=== PATIENT | female | born 1990 | race Caucasian/White ===

== ENCOUNTER → 2021-04-18 08:56 | Outpatient (BNVA) | payer SELFPAY | PROVIDERS: Family Provider Electrodiagnostic Medicine; PCP Electrodiagnostic Medicine; Visit Provider Nurse Practitioner Women's Health | DX: Z12.4 Encounter for screening for malignant neoplasm of cervix (principal); R68.82 Decreased libido | CPT/HCPCS: 88175 ==

== ENCOUNTER → 2021-07-24 10:45 | Outpatient (BNVA) | payer SELFPAY | PROVIDERS: Family Provider Electrodiagnostic Medicine; PCP Electrodiagnostic Medicine; Visit Provider Nurse Practitioner Women's Health | DX: O26.90 Pregnancy related conditions, unspecified, unspecified trimester (principal) | CPT/HCPCS: 81025 ==

== ENCOUNTER → 2021-08-26 10:08 | Outpatient (BNVA) | payer BC, SELFPAY | PROVIDERS: Family Provider Electrodiagnostic Medicine; PCP Electrodiagnostic Medicine; Visit Provider Obstetrics & Gynecology | DX: O21.9 Vomiting of pregnancy, unspecified (principal) | CPT/HCPCS: 80307; 81000; 85027; 86592; 86762; 86803; 86850; 86900; 87086; 87340; 87806 ==

== ENCOUNTER → 2021-09-08 11:05 | Outpatient (BNVA) | payer BC, MEDICAID, SELFPAY | PROVIDERS: Family Provider Electrodiagnostic Medicine; PCP Electrodiagnostic Medicine; Visit Provider Obstetrics & Gynecology | DX: Z34.80 Encounter for supervision of other normal pregnancy, unspecified trimester (principal) | CPT/HCPCS: 81000; 87491; 87591 ==

== ENCOUNTER → 2021-10-09 08:16 | Outpatient (BNVA) | payer BC, MEDICAID, SELFPAY | PROVIDERS: Family Provider Electrodiagnostic Medicine; PCP Electrodiagnostic Medicine; Visit Provider Nurse Practitioner Women's Health | DX: Z34.80 Encounter for supervision of other normal pregnancy, unspecified trimester (principal) | CPT/HCPCS: 81000; 82105; 87086 ==

== ENCOUNTER → 2021-11-19 13:21 | Outpatient (BNVA) | payer BC, MEDICAID, SELFPAY | PROVIDERS: Family Provider Electrodiagnostic Medicine; PCP Electrodiagnostic Medicine; Visit Provider Obstetrics & Gynecology | DX: Z34.90 Encounter for supervision of normal pregnancy, unspecified, unspecified trimester (principal) | CPT/HCPCS: 81000 ==

== ENCOUNTER → 2021-12-02 09:18 | Outpatient (BNVA) | payer BC, MEDICAID, SELFPAY | PROVIDERS: Family Provider Electrodiagnostic Medicine; PCP Electrodiagnostic Medicine; Visit Provider Obstetrics & Gynecology | DX: Z34.80 Encounter for supervision of other normal pregnancy, unspecified trimester (principal) | CPT/HCPCS: 81000 ==

== ENCOUNTER → 2021-12-31 09:40 | Outpatient (BNVA) | payer BC, MEDICAID, SELFPAY | PROVIDERS: Family Provider Electrodiagnostic Medicine; PCP Electrodiagnostic Medicine; Visit Provider Obstetrics & Gynecology | DX: O21.9 Vomiting of pregnancy, unspecified (principal); Z3A.00 Weeks of gestation of pregnancy not specified | CPT/HCPCS: 81000; 82950; 85027; 86850 ==

== ENCOUNTER → 2022-01-05 08:25 | Outpatient (BNVA) | payer BC, MEDICAID, SELFPAY | PROVIDERS: Family Provider Electrodiagnostic Medicine; PCP Electrodiagnostic Medicine; Visit Provider Obstetrics & Gynecology | DX: Z34.90 Encounter for supervision of normal pregnancy, unspecified, unspecified trimester (principal) | CPT/HCPCS: 82951; 82952 ==

== ENCOUNTER → 2022-01-15 09:01 | Outpatient (BNVA) | payer BC, MEDICAID, SELFPAY | PROVIDERS: Family Provider Electrodiagnostic Medicine; PCP Electrodiagnostic Medicine; Visit Provider Obstetrics & Gynecology | DX: Z34.90 Encounter for supervision of normal pregnancy, unspecified, unspecified trimester (principal) | CPT/HCPCS: 81000 ==

== ENCOUNTER → 2022-01-26 08:30 | Outpatient (BNVA) | payer BC, MEDICAID, SELFPAY | PROVIDERS: Family Provider Electrodiagnostic Medicine; PCP Electrodiagnostic Medicine; Visit Provider Obstetrics & Gynecology | DX: Z34.90 Encounter for supervision of normal pregnancy, unspecified, unspecified trimester (principal) | CPT/HCPCS: 81000; 87086 ==

== ENCOUNTER → 2022-01-29 09:30 | Outpatient (BNVA) | payer BC, MEDICAID, SELFPAY | PROVIDERS: Family Provider Electrodiagnostic Medicine; PCP Electrodiagnostic Medicine; Visit Provider Obstetrics & Gynecology | DX: Z34.90 Encounter for supervision of normal pregnancy, unspecified, unspecified trimester (principal) | CPT/HCPCS: 87086 ==

== ENCOUNTER → 2022-02-09 09:14 | Outpatient (BNVA) | payer BC, MEDICAID, SELFPAY | PROVIDERS: Family Provider Electrodiagnostic Medicine; PCP Electrodiagnostic Medicine; Visit Provider Obstetrics & Gynecology | DX: Z34.90 Encounter for supervision of normal pregnancy, unspecified, unspecified trimester (principal) | CPT/HCPCS: 81000; 85025 ==

== ENCOUNTER → 2022-02-23 09:01 | Outpatient (BNVA) | payer BC, MEDICAID, SELFPAY | PROVIDERS: Family Provider Electrodiagnostic Medicine; PCP Electrodiagnostic Medicine; Visit Provider Obstetrics & Gynecology | DX: Z34.90 Encounter for supervision of normal pregnancy, unspecified, unspecified trimester (principal) | CPT/HCPCS: 81000; 87081 ==

== ENCOUNTER → 2022-03-04 10:28 | Outpatient (BNVA) | payer BC, MEDICAID, SELFPAY | PROVIDERS: Family Provider Electrodiagnostic Medicine; PCP Electrodiagnostic Medicine; Visit Provider Obstetrics & Gynecology | DX: Z34.90 Encounter for supervision of normal pregnancy, unspecified, unspecified trimester (principal) | CPT/HCPCS: 81000 ==

== ENCOUNTER → 2022-03-09 09:45 | Outpatient (BNVA) | payer BC, MEDICAID, SELFPAY | PROVIDERS: PCP Electrodiagnostic Medicine; Visit Provider Obstetrics & Gynecology | DX: Z34.90 Encounter for supervision of normal pregnancy, unspecified, unspecified trimester (principal) | CPT/HCPCS: 81000 ==

== ENCOUNTER → 2022-03-16 08:55 | Outpatient (BNVA) | payer BC, MEDICAID, SELFPAY | PROVIDERS: PCP Electrodiagnostic Medicine; Visit Provider Obstetrics & Gynecology | DX: Z34.90 Encounter for supervision of normal pregnancy, unspecified, unspecified trimester (principal) | CPT/HCPCS: 81000 ==

== ENCOUNTER 2022-03-18 13:48 | Inpatient (IN) | payer BC, MEDICAID, SELFPAY ==
[2022-03-18] VITALS (88 sets, daily range): BP systolic 89–169; BP diastolic 52–115; PULSE 58–137; RESP 16–18; TEMP 36.3–36.6; O2SAT 99; BMI 31.8
[2022-03-18 10:28] LABS: Basophils % 0.2 %; Eosinophils % 0.1 %; Hemoglobin 14.1 g/dL (11.5-15.3); Lymphocytes # 1.2 10^3/uL (0.8-4.8); Lymphocytes % 7.9 %; Mean Corpuscular HGB Conc 34.4 g/dL (30.0-36.0); Mean Corpuscular Hemoglobin 30.2 pg (28.0-34.0); Mean Corpuscular Volume 87.8 fl (81-99); Mean Platelet Volume 10.9 fL (7.4-10.4); Monocytes # 0.7 10^3/uL (0.2-0.9); Monocytes % 4.9 %; Neutrophils # 12.97 10^3/uL (1.8-7.7); Neutrophils % 86.4 %; Nucleated Red Blood Cells % 0 %; Platelet Count 128 10^3/cmm (130-400); Red Blood Count 4.67 10^6/uL (4.1-5.3); Red Cell Distribution Width 12.4 % (12.1-15.1)
[2022-03-18 10:31] LABS: Add Urine Microscopic? YES; Bilirubin Urine Neg (Negative); Blood Urine 2+ (Negative); Glucose Urine UA Norm (Normal); Ketones Urine Negative (Negative); Leukocyte Esterase Urine Negative (Negative); Nitrate Urine Negative (Negative); Protein Urine Neg (Negative); Specific Gravity, Urine 1.005 (1.005-1.030); Urine Appearance Clear (CLEAR); Urine Color Straw (Yellow); Urobilinogen Urine Norm (Negative); pH Urine 7 (5-7)
[2022-03-18 10:32] LABS: Add Urine Culture? No; Bacteria Urine TRACE /hpf; Mucus Urine TRACE /hpf; RBC Urine RARE /hpf (0-2); Squamous Epithelial Cell Urine RARE /hpf (0-5); WBC Urine 0-4 /hpf (0-5)
[2022-03-18 10:44] LABS: Alanine Aminotransferase 12 U/L (0-33); Albumin Level 3.4 g/dL (3.5-5.2); Alkaline Phosphatase 212 U/L (35-105); Anion Gap 14.9 (5-19); Aspartate Amino Transferase 19 U/L (0-32); Blood Urea Nitrogen 7 mg/dL (6-20); Calcium 8.9 mg/dL (8.5-10.5); Carbon Dioxide 20 mmol/L (22-29); Chloride 102 mmol/L (98-107); Globulin 2.9 g/dL (1.3-4.6); Glomerular Filtration Rate 144.9 mL/min (90-130); Glucose 76 mg/dL (65-115); Osmolality Calculated 273 mOsm/kg (285-295); Potassium 3.9 mmol/L (3.5-5.1); Sodium 133 mmol/L (136-145); Total Bilirubin 0.5 mg/dL (0.15-1.2); Total Protein 6.3 g/dL (6.6-8.7); Uric Acid 3.4 mg/dL (2.4-5.7)
[2022-03-18 10:46] LABS: Urine Creatinine 37 mg/dL (28-217); Urine Protein Random 4 mg/dL
[2022-03-18 10:48] LABS: UPRO/UCREAT Ratio 0.11 mg/mg CR
[2022-03-18] MEDS: dextrose 5%-lactated ringers 1,000 ML 999 ML IV ×3 (11:48→23:00)
[2022-03-18] MEDS: ondansetron 2 mg/ML SDV 2 mL 4 MG IVP (11:49)
[2022-03-18] MEDS: lactated ringers 1,000 ML 999 ML IV (14:12)
--- NOTE | 2022-03-18 15:01 | P.ANESASSM_ITS ---
Pre-Anesthetic Assessment Height/Weight: Height 1.6 m Weight 81.647 kg Temp Pulse BP Pulse Ox 97.9 F 82 109/66 99 03/18/22 13:25 03/18/22 14:57 03/18/22 14:57 03/18/22 14:50 Preop Diagnosis: IUP epidural Familial anesthetic complications: none Was Beta Azucena taken within 24 hours: N/A Was Clonidine taken within 24 hours: N/A Last intake: toast this morning Social No alcohol and No tobacco Exam alert, oriented x 3, clear to auscultation bilaterally and regular rate & rhythm Airway Mallampati: Class I Dentition: chipped Pulmonary Asthma Anesthetic Plan ASA status: 2 Anesthesia: Regional (specify below) Risk of > 500 ml blood loss (7ml/kg in children): Yes, adequate IV access and fluids planned Medications/Allergies Home Medications Medication Instructions Recorded Confirmed Last Taken Type albuterol sulfate 90 mcg/actuation 2 puff inhalation Q6H PRN 08/26/21 03/16/22 Unknown Rx aerosol inhaler (Ventolin HFA) shortness of breath or wheezing #6.7 grams prenat.vits,ramses,[id number] 1 tab PO DAILY 08/26/21 03/16/22 Unknown History acetaminophen 325 mg capsule 325 mg PO QID PRN 12/02/21 03/16/22 Unknown History (Tylenol) Allergies Allergy/AdvReac Type Severity Reaction Status Date / Time No Known Allergies Allergy Verified 03/16/22 08:52 Current Medications Generic Name Dose Route Start Last Admin Trade Name Freq PRN Reason Stop Dose Admin Ropivacaine 200 mg in 100 mls @ 13 mls/hr 03/18/22 14:00 03/18/22 14:48 Naropin Premix EPIDURAL 13 mls/hr .[id number] VIJAY Administration Lactated Ringer's 1,000 mls @ 999 mls/hr 03/18/22 13:47 03/18/22 14:12 Lactated Ringers IV 999 mls/hr .Q1H1M PRN Administration Per L&D Rescitation Protocol [facility] Anesthesia Medical History Asthma Diagnosed in high school and it is exacerbated by heat and exercise. Last time she used an inhaler was probably in 2017 No pertinent past medical history Denies diabetes, hypertension, seizures, DVT/PE PCP: Dr. 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 Family History Denies family history of Colon cancer Ovarian cancer Diabetes Clotting disorder Heart disease Hypercholesteremia Breast cancer Bleeding disorder Hypertension Uterine cancer Thyroid disease Stroke Social History Smoking and tobacco status: never smoked Female Reproductive History : 1 Data Anesthesia : 03/18/22 10:00 03/18/22 10:00 Short CBC 03/18/22 Range/Units 10:00 WBC 15.0 H (4.0-10.0) 10^3/uL Hgb 14.1 (11.5-15.3) g/dL Hct 41.0 (37.0-47.0) % MCV 87.8 (81-99) fl Plt Count 128 L (130-400) 10^3/cmm Neut % (Auto) 86.4 % Neut # (Auto) 12.97 H (1.8-7.7) 10^3/uL BMP 03/18/22 10:00 Sodium 133 L Potassium 3.9 Chloride 102 Carbon Dioxide 20 L BUN 7 Creatinine 0.5 Glucose 76 Calcium 8.9 Liver Function 03/18/22 Range/Units 10:00 Total Bilirubin 0.5 (0.15-1.2) mg/dL AST 19 (0-32) U/L ALT 12 (0-33) U/L Alkaline Phosphatase 212 H (35-105) U/L Albumin 3.4 L (3.5-5.2) g/dL Urine 03/18/22 Range/Units 10:01 Urine Color Straw (Yellow) Urine Appearance Clear (CLEAR) Urine pH 7 (5-7) Ur Specific [place] 1.005 (1.005-1.030) Urine Protein Neg (Negative) Urine Glucose (UA) Norm (Normal) Urine Ketones Negative (Negative) Urine Nitrate Negative (Negative) Urine Bilirubin Neg (Negative) Ur Leukocyte Esterase Negative (Negative) Urine RBC Rare (0-2) /hpf Urine WBC 0-4 H (0-5) /hpf Cardiac Studies: No Data to Display
--- NOTE | 2022-03-18 15:02 | ANES.PROC ---
Anesthesia Procedures Procedure/Date: 03/18/22 Epidural: Time Out Performed: Yes Consents Signed: Procedure Consent Consent: requested by attending/covering physician, from patient, risks and benefits reviewed and patient agrees to proceed Lumbar Level: L3-L4 Epidural position: sitting Epidural procedure: sterile prep of area, 1% lidocaine to numb the area, 18 g needle, negative for paresthesia passed, neg for paresthesia, test dose given, 1.5% xylocaine 1:200k epi (2% lidocaine), 0.2% Ropivacaine bolus ml (5), placed PCEA, no systemic response, sterile dressing applied, L.U.D. no apparent complications and 0.2% Ropiavacaine @ mls/hr (3) Additional Comments: ROBIN at 6 cm, threaded to 12 cm
[2022-03-18] MEDS: dextrose 5%-lactated ringers 1,000 ML 125 ML IV (16:02)
--- NOTE | 2022-03-18 16:07 | PM.OPHPUD ---
Labor & Delivery H&P Update Date of Procedure: March 20, 2022 Date H&P Performed: 03/16/22 H&P update information: I have reviewed H&P completed within last 30 days, I have examined patient prior to procedure and Changes to prior documentation as noted here Changes to previous documentation: The patient's cervix has progressed to 3 cm dilation and she is having regular painful contractions. She will be admitted for active labor. Admission Diagnosis: @ 39 weeks 5 days Preop diagnosis: IUP
[2022-03-18] MEDS: alum-mag-hydroxide-sime 30 mL UDC PO (18:19)
[2022-03-18] MEDS: oxytocin 30 UNIT/500 ML BAG IV (18:37)
[2022-03-19] VITALS (89 sets, daily range): BP systolic 85–143; BP diastolic 46–84; PULSE 56–133; RESP 12–18; TEMP 36.2–37.9
[2022-03-19] MEDS: ondansetron 2 mg/ML SDV 2 mL 4 MG IVP (00:44)
[2022-03-19] MEDS: alum-mag-hydroxide-sime 30 mL UDC PO ×2 (02:11→16:45)
[2022-03-19] MEDS: dextrose 5%-lactated ringers 1,000 ML 125 ML IV ×2 (03:22→05:35)
[2022-03-19] MEDS: acetaminophen 325 mg Tablet 650 MG PO ×3 (03:56→18:29)
[2022-03-19] MEDS: ampicillin 2,000 MG in sodium chloride 0.9% (plus) 50 ML 100 MG IV (06:16)
--- NOTE | 2022-03-19 06:22 | PM.DELIVERY ---
Delivery Note: Date of delivery: March 19, 2022 Pre-delivery diagnoses: Term Active labor Post-delivery diagnoses: Same Procedure: Delivering Physician: Reynaldo Estimated blood loss (mL): 350 Findings: viable male with apgars of 8&9 Post Delivery Diagnoses: Supervision of normal : Qualifiers: Qualified Code(s): Z34.03 - Encounter for supervision of normal first , third trimester Pre-Delivery Course: Pt was actively laboring with intact membranes that spontaneously ruptured. Epidural in place and working well. Progress was slow with low grade fever and maternal tachycardia. Delivery: Male delivered from the oa position over a 2nd degree midline and left labial laceration with epidural anesthesia. Baby placed on the maternal abdomen and the cord allowed to pulse. Terminal meconium noted at delivery. Tranexamic acid 1000mg given after delivery due to increased hemorrhage risk d/t long labor and low grade fever with maternal tachycardia c/w chorioamnionitis. Placenta delivered spontaneously with 3 vc noted. EBL 350ml. Laceration repair with 3-0 vicryl in a layered fashion x 2. Cervix noted to be prolapsing at delivery and was easily reduced. Cervix and rectum intact. Post-Delivery Status: mom and baby stable, baby to nursery for further evaluation. History History History 1 Term Miscarriages/Ectopic Living Children A&P Assessment and plan (1) Supervision of normal : Qualifiers: Qualified Code(s): Z34.03 - Encounter for supervision of normal first , third trimester (2) Asthma: (3) Chorioamnionitis, delivered, current hospitalization: Plan Uncomplicated 2nd degree midline perineal laceration, repaired left labial laceration, repaired will continue ampicillin and gentamycin for 24 hrs routine pp care Coding Level of Care Code Established Pt Acute Labor And Delivery Registered Nurse for Chg Fwd Patient Type Established History Problem Focused Exam Problem Focused Medical Decision Making Straight Forward Diagnoses Supervision of normal Z34.03 Asthma J45.909 Chorioamnionitis, delivered, current hospitalization O41.1290 Time Spent (min) 45
[2022-03-19] MEDS: hyDROXYzine 25 mg Capsule 50 MG PO (07:34)
[2022-03-19] MEDS: ampicillin 1,000 MG in sodium chloride 0.9% (plus) 50 ML 100 MG IV ×3 (09:57→18:30)
[2022-03-19] MEDS: lactated ringers 1,000 ML 125 ML IV ×2 (15:12→21:32)
--- NOTE | 2022-03-19 16:45 | P.PN_ITS ---
Subjective Subjective: Ms. Echavarria is a 31 year old with an LMP of 06/14/2021 and an BRIDGET of 03/21/2022 by LMP consistent with 9 week ultrasound, placing her at 39-5/7 weeks gestation. Admitted to labor and delivery in active labor. Vitals/I&O/Wt Last Vital Signs Temp 97.8 F 03/21/22 09:47 Pulse 94 03/21/22 09:47 Resp 16 03/21/22 09:47 BP 114/75 03/21/22 09:47 Pulse Ox 97 03/21/22 09:47 O2 Del Method 03/19/22 10:06 03/20/22 03/21/22 03/21/22 22:59 06:59 14:59 Intake Total 50 / 100 Balance 50 / 100 Physical Exam Narrative: GA: Alert and oriented ?3. Lungs: Clear to auscultation bilaterally. Heart: Regular rhythm and rate. Abdomen: Gravid, full the height equals dates, nontender. GROUND INSTRUCTOR ADVANCED: SVE; dilation: 9 cm, effacement: 100%, station: 0, presentation: vx, membranes: AROM. Extremities: no edema, no cyanosis, no calves pain. heart tracing: Basal rate: 140's bpm, Variability: moderate, Accelerations: present, Decelerations: absent, Contraction: q3min. Urinary Catheter Management: Garcia: Cath Placed During This Visit: yes, but has since been removed by the nurse Reason for Continuing Indwelling Catheter: Required Immobilization for Trauma or Surgery or Anesthesia Urinary Catheter Date of Insertion: 03/18/22 Urinary Catheter Time of Insertion: 15:30 Date Urinary Catheter Removed: 03/19/22 Time Urinary Catheter Discontinued: 19:17 Data : 03/21/22 05:10 03/18/22 10:00 A&P Assessment and plan (1) Term : Ms. Echavarria is a 31 year old with an LMP of 06/14/2021 and an BRIDGET of 03/21/2022 by LMP consistent with 9 week ultrasound, placing her at 39-5/7 weeks gestation. heart tracing category 2 due to tachycardia with maternal fever. Antibiotic started. scalp stimulation good. Attestations Medical Necessity Statement*: In my professional opinion per admitting diagnosis Coding Level of Care Code Acute Auto Body Builder Apprentice for Chg Fwd Diagnoses Term Z34.90
[2022-03-19] MEDS: pantoprazole 40 mg SDV IVP (19:34)
[2022-03-19] MEDS: gentamicin inj 120 MG in sodium chloride 0.9% (100 ml) 100 ML 103 MG IV (21:32)
[2022-03-20] VITALS (9 sets, daily range): BP systolic 98–120; BP diastolic 56–74; PULSE 68–93; RESP 16; TEMP 36.4–36.9
[2022-03-20] MEDS: ampicillin 1,000 MG in sodium chloride 0.9% (plus) 50 ML 100 MG IV ×5 (01:36→20:36)
[2022-03-20] MEDS: ibuprofen 800 mg tablet PO ×3 (09:59→20:38)
[2022-03-20] MEDS: prenatal vitamin Capsule 1 CAP PO (09:59)
[2022-03-20 10:59] LABS: Hematocrit 27.8 % (37.0-47.0); Hemoglobin 9.6 g/dL (11.5-15.3); Mean Corpuscular HGB Conc 34.5 g/dL (30.0-36.0); Mean Corpuscular Hemoglobin 31.2 pg (28.0-34.0); Mean Corpuscular Volume 90.3 fl (81-99); Mean Platelet Volume 11.4 fL (7.4-10.4); Platelet Count 106 10^3/cmm (130-400); Red Blood Count 3.08 10^6/uL (4.1-5.3); Red Cell Distribution Width 12.8 % (12.1-15.1); White Blood Count 21.2 10^3/uL (4.0-10.0)
--- NOTE | 2022-03-20 11:14 | P.PN_ITS ---
CUE WORKER Subjective Subjective: Interval history: PP day #1 doing well. Feeling some discomfort with movement but denies pain. Bleeding decreased since delivery. Labor: Station: +3 Monitor Mode: Palpation Contraction Pattern: Regular Status: Category I Post /CS: Patient comments OB post-: no complaints, pain well controlled, tolerating diet and flatus present [place] baby status: doing well and other (in room with parents) Vitals/I&O/Wt Last Vital Signs Temp 97.2 F L 03/19/22 21:00 Pulse 68 03/20/22 04:00 Resp 16 03/20/22 04:00 BP 102/65 03/20/22 04:00 Pulse Ox 99 03/18/22 14:50 O2 Del Method 03/19/22 10:06 03/19/22 03/20/22 03/20/22 22:59 06:59 14:59 Intake Total 2259.017 / 2466.250 100 / 2566.250 Output Total 600 / 600 Balance 1659.017 / 1866.250 100 / 1966.250 Physical Exam Const: COMMON NORMALS: no acute distress, patient oriented x3, alert and well nourished HENMT: COMMON NORMALS: normocephalic, atraumatic, hearing grossly normal bilaterally and moist oral mucous membranes HEAD & SCALP: normocephalic and atraumatic Eye: COMMON NORMALS: conjunctivae normal and no scleral icterus CONJUNCTIVA: Yes conjunctivae normal Neck/C-Spine: COMMON NORMALS: no JVD Resp: COMMON NORMALS: normal respiratory effort, No retractions and No use of accessory muscles Cardio: COMMON NORMALS: no JVD, regular rate and Peripheral pulses 2+ throughout RATE: regular rate PERIPHERAL PULSES: Peripheral pulses 2+ throughout GI: COMMON NORMALS: Normal to inspection, nondistended, normoactive bowel sounds present, Soft to palpation and non-tender PALPATION: Yes Soft to palpation : COMMON NORMALS: Yes normal external appearance (laceration repair healing well without echymosis, mild edema) Extremity: COMMON NORMALS: normal to inspection, full ROM and capillary refill normal NARRATIVE EXTREMITY EXAM: mild nonpitting edema bilateral le Neuro: COMMON NORMALS: patient oriented x3, moves all extremities, no focal motor deficits, no sensory deficits noted and gait normal SENSORIUM/ORIENTATION: Yes alert Psych: COMMON NORMALS: mental status grossly normal, Normal thought process present, cooperative, normal affect and speech normal SPEECH: Yes normal speech THOUGHT PROCESS: Normal thought process present Skin: COMMON NORMALS: turgor normal GENERAL SKIN EXAM: turgor normal Urinary Catheter Management: Garcia: Cath Placed During This Visit: yes, but has since been removed by the nurse Reason for Continuing Indwelling Catheter: Required Immobilization for Trauma or Surgery or Anesthesia Urinary Catheter Date of Insertion: 03/18/22 Urinary Catheter Time of Insertion: 15:30 Date Urinary Catheter Removed: 03/19/22 Time Urinary Catheter Discontinued: 19:17 Data : 03/20/22 10:10 03/18/22 10:00 A&P Assessment and plan (1) Supervision of normal : delivered vaginally with repair of 2nd degree laceration and left labial laceration plan dc in 2 days to home received antibiotics post delivery for chorioamnionitis Status: Acute Qualifiers: Qualified Code(s): Z34.03 - Encounter for supervision of normal first , third trimester (2) Asthma: Status: Acute (3) Chorioamnionitis, delivered, current hospitalization: ampicillin and gentamycin continued after delivery will repeat cbc tomorrow Status: Acute Attestations Medical Necessity Statement*: 03/19/22 with laceration repair Coding Level of Care Code Acute National Sales Associate for Chg Fwd Diagnoses Supervision of normal Z34.03 Asthma J45.909 Chorioamnionitis, delivered, current hospitalization O41.1290 Time Spent (min) 30
[2022-03-20] MEDS: docusate sodium 100 mg Capsule PO (16:51)
[2022-03-21 05:00] VITALS: BP 101/72; PULSE 80; RESP 16; TEMP 36.9
[2022-03-21 05:23] LABS: Basophils % 0.3 %; Eosinophils # 0.1 10^3/uL (0.0-0.8); Eosinophils % 0.7 %; Hematocrit 24.9 % (37.0-47.0); Hemoglobin 8.5 g/dL (11.5-15.3); Lymphocytes # 1.6 10^3/uL (0.8-4.8); Lymphocytes % 11.8 %; Mean Corpuscular HGB Conc 34.1 g/dL (30.0-36.0); Mean Corpuscular Volume 90.9 fl (81-99); Mean Platelet Volume 10.8 fL (7.4-10.4); Monocytes # 0.7 10^3/uL (0.2-0.9); Monocytes % 5.2 %; Neutrophils # 11.19 10^3/uL (1.8-7.7); Neutrophils % 81.3 %; Nucleated Red Blood Cells % 0 %; Platelet Count 110 10^3/cmm (130-400); Red Blood Count 2.74 10^6/uL (4.1-5.3); Red Cell Distribution Width 13.1 % (12.1-15.1); White Blood Count 13.8 10^3/uL (4.0-10.0)
--- NOTE | 2022-03-21 08:25 | ANE.PACU2 ---
Inpatient post-anesthesia follow up: Airway intact: Yes Vital signs: Temperature 98.5 F Pulse Rate 80 Respiratory Rate 16 Blood Pressure 101/72 Pulse Oximetry 99 Oxygen Delivery Me thod Room Air Oxygen Flow Rate Fraction of Inspir ed Oxygen Hydration adequate: Yes Nausea and vomiting: No Pain level: 2 Mental status: Baseline
[2022-03-21] MEDS: docusate sodium 100 mg Capsule PO ×2 (09:39→18:39)
[2022-03-21] MEDS: prenatal vitamin Capsule 1 CAP PO (09:39)
[2022-03-21] MEDS: ibuprofen 800 mg tablet PO ×3 (09:39→21:20)
[2022-03-21 09:47] VITALS: BP 114/75; PULSE 94; RESP 16; TEMP 36.6; O2SAT 97
--- NOTE | 2022-03-21 12:15 | PM.OBGYDC ---
Discharge Providers BOARDINGHOUSE KEEPER Date of Admission: 03/18/22 13:48 Date of Discharge: 03/21/22 Attending Provider at Admission: Daphne Robledo MD Attending Provider at Discharge: Ganga Marie MD Primary Care Provider: Jonathan King DO Diagnoses at Discharge Discharge Diagnosis (1) Supervision of normal : Details from hospital stay: delivered via current hospital stay Status: Acute Qualifiers: Qualified Code(s): Z34.03 - Encounter for supervision of normal first , third trimester (2) Asthma: Details from hospital stay: stable Status: Acute Permanent problem details: Diagnosed in high school and it is exacerbated by heat and exercise. Last time she used an inhaler was probably in 2017 (3) Chorioamnionitis, delivered, current hospitalization: Details from hospital stay: resolved Status: Acute Reason for Visit Reason for Visit: Active Labor Brief History: admitted in active labor at 3 cm with membranes intact for anticipated Hospital Course Hospital Course Pt is a G1 at term who was admitted in active labor and progressed slowly to deliver a viable male over a second degree perineal and left labial laceration with epidural anesthesia. She recieved ampicillin and gentamycin for 24hrs post delivery for chorioamnionitis. Baby and mom remained stable post delivery and mom is discharged to boarder status pp day #2. Baby still on antibiotics and planned discharge for tomorrow. Information Peripartum Data: Delivery Method: Vaginal Laceration description: Perineal - 2nd Degree ( repaired also left labial, repaired) Physical Exam Const: COMMON NORMALS: no acute distress, patient oriented x3 and alert HENMT: COMMON NORMALS: normocephalic and moist oral mucous membranes HEAD & SCALP: normocephalic Eye: COMMON NORMALS: conjunctivae normal and no scleral icterus CONJUNCTIVA: Yes conjunctivae normal Neck/C-Spine: COMMON NORMALS: no JVD Resp: COMMON NORMALS: normal respiratory effort, No retractions and No use of accessory muscles Cardio: COMMON NORMALS: no JVD, regular rate and Peripheral pulses 2+ throughout RATE: regular rate PERIPHERAL PULSES: Peripheral pulses 2+ throughout GI: INSPECTION: Yes normal to inspection and Yes gravid abdomen (uterus involuting, 2 fb below u) : COMMON NORMALS: Yes normal external appearance OTHER: laceration repairs healing without echymosis Extremity: COMMON NORMALS: normal to inspection, capillary refill normal and no clubbing, cyanosis or edema Neuro: COMMON NORMALS: patient oriented x3 SENSORIUM/ORIENTATION: Yes alert Psych: COMMON NORMALS: mental status grossly normal, Normal thought process present, cooperative, normal affect and speech normal SPEECH: Yes normal speech THOUGHT PROCESS: Normal thought process present Skin: OTHER: warm, dry and intact Urinary Catheter Management: Garcia: Cath Placed During This Visit: yes, but has since been removed by the nurse Reason for Continuing Indwelling Catheter: Required Immobilization for Trauma or Surgery or Anesthesia Urinary Catheter Date of Insertion: 03/18/22 Urinary Catheter Time of Insertion: 15:30 Date Urinary Catheter Removed: 03/19/22 Time Urinary Catheter Discontinued: 19:17 History History History 1 Term Miscarriages/Ectopic Living Children Discharge Data Studies Completed and Pending Laboratory Results WBC 13.8 10^3/uL (4.0-10.0) H 03/21/22 05:10 RBC 2.74 10^6/uL (4.1-5.3) L 03/21/22 05:10 Hgb 8.5 g/dL (11.5-15.3) L 03/21/22 05:10 Hct 24.9 % (37.0-47.0) L 03/21/22 05:10 MCV 90.9 fl (81-99) 03/21/22 05:10 MCH 31.0 pg (28.0-34.0) 03/21/22 05:10 MCHC 34.1 g/dL (30.0-36.0) 03/21/22 05:10 RDW 13.1 % (12.1-15.1) 03/21/22 05:10 Plt Count 110 10^3/cmm (130-400) L 03/21/22 05:10 MPV 10.8 fL (7.4-10.4) H 03/21/22 05:10 Neut % (Auto) 81.3 % 03/21/22 05:10 Lymph % (Auto) 11.8 % 03/21/22 05:10 [place] % (Auto) 5.2 % 03/21/22 05:10 Eos % (Auto) 0.7 % 03/21/22 05:10 Baso % (Auto) 0.3 % 03/21/22 05:10 Neut # (Auto) 11.19 10^3/uL (1.8-7.7) H 03/21/22 05:10 Lymph # (Auto) 1.6 10^3/uL (0.8-4.8) 03/21/22 05:10 [place] # (Auto) 0.7 10^3/uL (0.2-0.9) 03/21/22 05:10 Eos # (Auto) 0.1 10^3/uL (0.0-0.8) 03/21/22 05:10 Baso # (Auto) 0.0 10^3/uL (0.0-0.1) 03/21/22 05:10 Nucleated RBC % (auto) 0 % 03/21/22 05:10 Nucleated RBCs # 0.0 /100WBC 03/21/22 05:10 Sodium 133 mmol/L (136-145) L 03/18/22 10:00 Potassium 3.9 mmol/L (3.5-5.1) 03/18/22 10:00 Chloride 102 mmol/L (98-107) 03/18/22 10:00 Carbon Dioxide 20 mmol/L (22-29) L 03/18/22 10:00 Anion Gap 14.9 (5-19) 03/18/22 10:00 BUN 7 mg/dL (6-20) 03/18/22 10:00 Creatinine 0.5 mg/dL (0.5-0.9) 03/18/22 10:00 GFR Calculation 144.9 mL/min (90-130) H 03/18/22 10:00 Glucose 76 mg/dL (65-115) 03/18/22 10:00 Calculated Osmolality 273 mOsm/kg (285-295) L 03/18/22 10:00 Uric Acid 3.4 mg/dL (2.4-5.7) 03/18/22 10:00 Calcium 8.9 mg/dL (8.5-10.5) 03/18/22 10:00 Total Bilirubin 0.5 mg/dL (0.15-1.2) 03/18/22 10:00 AST 19 U/L (0-32) 03/18/22 10:00 ALT 12 U/L (0-33) 03/18/22 10:00 Alkaline Phosphatase 212 U/L (35-105) H 03/18/22 10:00 Total Protein 6.3 g/dL (6.6-8.7) L 03/18/22 10:00 Albumin 3.4 g/dL (3.5-5.2) L 03/18/22 10:00 Globulin 2.9 g/dL (1.3-4.6) 03/18/22 10:00 Urine Color Straw (Yellow) 03/18/22 10:01 Urine Appearance Clear (CLEAR) 03/18/22 10:01 Urine pH 7 (5-7) 03/18/22 10:01 Ur Specific [place] 1.005 (1.005-1.030) 03/18/22 10:01 Urine Protein Neg (Negative) 03/18/22 10:01 Urine Glucose (UA) Norm (Normal) 03/18/22 10:01 Urine Ketones Negative (Negative) 03/18/22 10:01 Urine Blood 2+ (Negative) H 03/18/22 10:01 Urine Nitrate Negative (Negative) 03/18/22 10:01 Urine Bilirubin Neg (Negative) 03/18/22 10:01 Urine Urobilinogen Norm mg/dL (Negative) 03/18/22 10:01 Ur Leukocyte Esterase Negative (Negative) 03/18/22 10:01 Urine RBC Rare /hpf (0-2) 03/18/22 10:01 Urine WBC 0-4 /hpf (0-5) H 03/18/22 10:01 Ur Squamous Epith Cells Rare /hpf (0-5) 03/18/22 10:01 Amorphous Sediment Not Reportable 03/18/22 10:01 Urine Bacteria Trace /hpf (NONE) 03/18/22 10:01 Urine Mucus Trace /hpf 03/18/22 10:01 U Random Total Protein 4 mg/dL 03/18/22 10:01 Urine Creatinine 37 mg/dL (28-217) 03/18/22 10:01 Protein/Creatinin Ratio 0.11 mg/mg CR 03/18/22 10:01 Procedures Performed 03/19/22 Vitals Last Vital Signs Temp 97.8 F 03/21/22 09:47 Pulse 94 03/21/22 09:47 Resp 16 03/21/22 09:47 BP 114/75 03/21/22 09:47 Pulse Ox 97 03/21/22 09:47 O2 Del Method 03/19/22 10:06 Discharge Plan Discharge Patient Disposition: Home Condition: Stable Prescriptions: New ibuprofen 800 mg Tablet 800 mg PO TID Qty: 60 0RF Continued acetaminophen [Tylenol] 325 mg capsule 325 mg PO QID PRN prenat.vits,ramses,lsy-myma-dopql Tablet 1 tab PO DAILY albuterol sulfate [Ventolin HFA] 90 mcg/actuation HFA aerosol inhaler 2 puff inhalation Q6H PRN (Reason: shortness of breath or wheezing) Qty: 6.7 0RF Discharge Orders: Discharge Order (Routine); Ordered 03/21/22 Ordered By: Selena Jacobs Discharge Diet: Regular Discharge Activity: Limit activity as instructed Patient Instructions: Depression (DC), Bleeding (DC), Preeclampsia and Eclampsia After Delivery (GEN), OB Discharge Report, OB Food/Drug Interaction Guide, Opioid Safety, OB Home Care, OB Vaginal Deliveries - [facility] Activity Restrictions/Additional Instructions: no lifting more than 20 pounds, nothing in the vagina and no tub baths or swimming for 6 weeks Discharge Attestations BOARDINGHOUSE KEEPER Time Spent in Discharge Care*: greater than 30 min Coding Level of Care Code Established Pt Acute Machine Feeder Raw Stock for Chg Fwd Patient Type Established History Problem Focused Exam Problem Focused Medical Decision Making Straight Forward Diagnoses Supervision of normal Z34.03 Asthma J45.909 Chorioamnionitis, delivered, current hospitalization O41.1290 Time Spent (min) 60
[2022-03-21 16:34] VITALS: BP 110/71; PULSE 103; RESP 16; TEMP 36.7; O2SAT 98
[2022-03-21 22:00] VITALS: BP 115/74; PULSE 96; RESP 18; TEMP 36.8
== END 2022-03-21 22:05 | disposition home or self-care (01) | DRG 805 ==
LOC: OPOB 13:48 → OBGYN 13:48
PROVIDERS: Obstetrics & Gynecology; Admitting Provider Obstetrics & Gynecology; PCP Electrodiagnostic Medicine; Visit Provider Obstetrics & Gynecology
DX: O99.52 Diseases of the respiratory system complicating childbirth (principal); O41.1230 Chorioamnionitis, third trimester, not applicable or unspecified; Z37.0 Single live birth; J45.20 Mild intermittent asthma, uncomplicated; O76 Abnormality in fetal heart rate and rhythm complicating labor and delivery; O70.1 Second degree perineal laceration during delivery; Z3A.39 39 weeks gestation of pregnancy; O77.0 Labor and delivery complicated by meconium in amniotic fluid
CPT/HCPCS: 36415; 51702; 59025; 59409; 80053; 81001; 82570; 84156; 84550; 85025; 85027; 99211; C9113; J0290; J1580; J2405; J2795

== ENCOUNTER → 2023-01-08 12:50 | Outpatient (BNVA) | payer MEDICAID, SELFPAY | PROVIDERS: PCP Electrodiagnostic Medicine; Visit Provider Obstetrics & Gynecology | DX: Z32.00 Encounter for pregnancy test, result unknown (principal) | CPT/HCPCS: 81025 ==

== ENCOUNTER → 2023-01-12 08:22 | Outpatient (BNVA) | payer MEDICAID, SELFPAY | PROVIDERS: PCP Electrodiagnostic Medicine; Visit Provider Obstetrics & Gynecology | DX: Z34.90 Encounter for supervision of normal pregnancy, unspecified, unspecified trimester (principal) | CPT/HCPCS: 80307; 81000; 85027; 86592; 86762; 86803; 86850; 86900; 87086; 87340; 87806 ==

== ENCOUNTER → 2023-03-16 09:25 | Outpatient (BNVA) | payer MEDICAID, SELFPAY | PROVIDERS: PCP Electrodiagnostic Medicine; Visit Provider Obstetrics & Gynecology | DX: Z34.82 Encounter for supervision of other normal pregnancy, second trimester (principal) | CPT/HCPCS: 76805 ==

== ENCOUNTER → 2023-04-13 08:56 | Outpatient (BNVA) | payer BC, MEDICAID, SELFPAY | PROVIDERS: PCP Electrodiagnostic Medicine; Visit Provider Nurse Practitioner Women's Health | DX: Z34.80 Encounter for supervision of other normal pregnancy, unspecified trimester (principal) | CPT/HCPCS: 81000; 87491; 87591 ==

== ENCOUNTER → 2023-05-11 09:13 | Outpatient (BNVA) | payer BC, MEDICAID, SELFPAY | PROVIDERS: PCP Electrodiagnostic Medicine; Visit Provider Obstetrics & Gynecology | DX: Z34.80 Encounter for supervision of other normal pregnancy, unspecified trimester (principal) | CPT/HCPCS: 81000; 82950 ==

== ENCOUNTER → 2023-06-22 08:04 | Outpatient (BNVA) | payer BC, MEDICAID, SELFPAY | PROVIDERS: PCP Electrodiagnostic Medicine; Visit Provider Nurse Practitioner Women's Health | DX: Z34.80 Encounter for supervision of other normal pregnancy, unspecified trimester (principal) | CPT/HCPCS: 81000 ==

== ENCOUNTER → 2023-06-29 08:16 | Outpatient (BNVA) | payer BC, MEDICAID, SELFPAY | PROVIDERS: PCP Electrodiagnostic Medicine; Visit Provider Obstetrics & Gynecology | DX: Z34.80 Encounter for supervision of other normal pregnancy, unspecified trimester (principal) | CPT/HCPCS: 76816 ==

== ENCOUNTER → 2023-07-06 08:12 | Outpatient (BNVA) | payer BC, MEDICAID, SELFPAY | PROVIDERS: PCP Electrodiagnostic Medicine; Visit Provider Obstetrics & Gynecology | DX: Z34.80 Encounter for supervision of other normal pregnancy, unspecified trimester (principal) | CPT/HCPCS: 81000; 87081 ==

== ENCOUNTER → 2023-07-13 08:07 | Outpatient (BNVA) | payer BC, MEDICAID, SELFPAY | PROVIDERS: PCP Electrodiagnostic Medicine; Visit Provider Obstetrics & Gynecology | DX: Z34.80 Encounter for supervision of other normal pregnancy, unspecified trimester (principal) | CPT/HCPCS: 81000 ==

== ENCOUNTER → 2023-07-21 15:35 | Outpatient (BNVA) | payer BC, MEDICAID, SELFPAY | PROVIDERS: PCP Electrodiagnostic Medicine; Visit Provider Obstetrics & Gynecology | DX: Z34.80 Encounter for supervision of other normal pregnancy, unspecified trimester (principal) | CPT/HCPCS: 81000 ==

== ENCOUNTER 2023-07-25 20:24 | Inpatient (IN) | payer BC, MEDICAID, SELFPAY ==
[2023-07-25 20:51] VITALS: RESP 17
[2023-07-25 21:00] LABS: Basophils % 0.2 %; Eosinophils # 0.1 10^3/uL (0.0-0.8); Eosinophils % 0.4 %; Lymphocytes # 2.7 10^3/uL (0.8-4.8); Lymphocytes % 19.3 %; Mean Corpuscular Hemoglobin 30.1 pg (27-33); Mean Corpuscular Volume 86.1 fl (85-98); Mean Platelet Volume 10.1 fL (7.4-10.4); Monocytes # 0.7 10^3/uL (0.2-0.9); Monocytes % 4.9 %; Neutrophils # 10.48 10^3/uL (1.8-7.7); Neutrophils % 74.7 %; Nucleated Red Blood Cells % 0 %; Platelet Count 141 10^3/cmm (157-399); Red Blood Count 4.88 10^6/uL (3.85-5.65); Red Cell Distribution Width 12.3 % (12.1-15.1); White Blood Count 14.02 10^3/uL (3.29-11.43)
--- NOTE | 2023-07-25 21:27 | ANES.PREANE2 ---
Pre-Anesthetic Assessment Height/Weight: Height 1.6 m Preop Diagnosis: labor pains epidural Was Beta Azucena taken within 24 hours: N/A Was Clonidine taken within 24 hours: N/A Exam alert, oriented x 3, clear to auscultation bilaterally and regular rate & rhythm Airway Submandibular: within normal limits Cervical ROM: within normal limits Mallampati: Class II Dentition: full History/ROS Other Pulmonary Asthma CV/HEM None reported None reported Hepatic None reported GI Gastroesophageal Reflux Disease Metabolic None reported Musc/skel None reported Neuropsych None reported Anesthetic Plan ASA status: 2 Anesthesia: Regional (specify below) Risk of > 500 ml blood loss (7ml/kg in children): Yes, adequate IV access and fluids planned Medications/Allergies Home Medications Medication Instructions Recorded Confirmed Last Taken Type albuterol sulfate 90 mcg/actuation 2 puff inhalation Q6H PRN 08/26/21 07/21/23 Unknown Rx aerosol inhaler (Ventolin HFA) shortness of breath or wheezing #6.7 grams prenat.vits,ramses,pls-xmpp-fkgrp 1 tab PO DAILY 08/26/21 07/21/23 Unknown History acetaminophen 325 mg capsule 325 mg PO QID PRN 12/02/21 07/21/23 Unknown History (Tylenol) metoclopramide HCl 10 mg tablet 10 mg PO Q6H PRN nausea and 01/12/23 07/21/23 Unknown Rx (Reglan) vomiting #30 tabs Allergies Allergy/AdvReac Type Severity Reaction Status Date / Time No Known Allergies Allergy Verified 07/21/23 15:19 [facility] Anesthesia Medical History Carpal tunnel syndrome, bilateral Asthma Diagnosed in high school and it is exacerbated by heat and exercise. Last time she used an inhaler was probably in 2017 No pertinent past medical history Denies diabetes, hypertension, seizures, DVT/PE PCP: Dr. 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
[2023-07-25] MEDS: ROPivacaine syringe 100 MG/50 ML SYRINGE 10 MG EPIDURAL (21:43)
--- NOTE | 2023-07-25 21:51 | P.ANES_ITS ---
Anesthesia Procedures Procedure/Date: 07/25/23 epidural Procedure Narrative: epidural complete, bolus given, epidural pump initiated with CROSSBAR SWITCH ADJUSTER education given, vitals taken during procedure and satisfactory throughout, patient admits to decrease pain, report of procedure to OB RN Epidural: Time Out Performed: Yes Consents Signed: Procedure Consent Consent: requested by attending/covering physician, from patient, risks and benefits reviewed and patient agrees to proceed Lumbar Level: L3-L4 Ep idural position: sitting Epidural procedure: sterile prep of area, 1% lidocaine to numb the area (3 mL), 18 g needle, negative for paresthesia passed, neg for paresthesia, test dose given, 1.5% xylocaine 1:200k epi (5 mL), 0.2% Ropivacaine bolus ml (5 mL), placed PCEA, no systemic response, sterile dressing applied, L.U.D. no apparent complications and 0.2% Ropiavacaine @ mls/hr (13 mL/hr)
[2023-07-25 21:58] VITALS: BMI 32.9
[2023-07-25] MEDS: oxytocin 30 UNIT/500 ML BAG 600 UNIT IV (23:20)
--- NOTE | 2023-07-25 23:37 | PM.OPHPUD ---
Labor & Delivery H&P Update Date of Procedure: July 25, 2023 Date H&P Performed: 07/21/23 H&P update information: I have reviewed H&P completed within last 30 days, I have examined patient prior to procedure and Changes to prior documentation as noted here (cervix: /-3/VX/IM) Admission Diagnosis: Preop diagnosis: labor pains
--- NOTE | 2023-07-25 23:38 | PM.DELIVERY ---
Delivery Note: Date of delivery: July 25, 2023 Pre-delivery diagnoses: Term Post-delivery diagnoses: Term delivered Procedure: Spontaneous vaginal delivery Delivering Physician: Ganga Marie MD Estimated blood loss (mL): 300 Delivery: The patient was noted to be complete and pushing, so was placed in the dorsal lithotomy position, prepped and draped in the usual sterile fashion for a vaginal delivery. Pt. Noted to have epidural anesthesia. At 2315 the patient delivered a term female weighing 3475g with scores of 8 and 9 at one and five minutes, respectively. The vertex was delivered spontaneously over intact perineum. The patient was asked to push and the head delivered spontaneously in the NICHO position, over an intact perineum. A nuchal cord was checked and 1 noted, and delivered through around head as necessary. The anterior shoulder delivered easily and the posterior shoulder followed. The remainder of the infant was easily delivered and the oropharynx and nasopharynx was bulb suctioned. The infant was noted to have spontaneous cry and spontaneous movement of all four extremities. The cord was clamped x 2 and cut and noted to have 2 arteries and one vein. The infant was passed to the mother's abdomen where nursing personnel were in attendance. Cord blood sample was then obtained. The placenta delivered intact spontaneously and the uterus was explored. 20 units of Pitocin was placed in the IV bag to firm the uterus. Examination of the cervix and vaginal vault did not reveal any lacerations. A vaginal pack was then placed. Examination of the perineum showed first-degree laceration. The laceration was repaired with 3-0 Vicryl in the normal fashion in a running non locking fashion to reapproximate the laceration in layers. The vaginal pack was then removed. The patient tolerated this procedure well, and recovered in L&D with her infant in the LDR room. All sponge and needle counts were correct. History History History 2 Term 1 0 Miscarriages/Ectopic 0 Living Children 1 Coding Level of Care Code Acute Code for Chg Fwd
[2023-07-26] MEDS: lanolin oint 7 gm 1 APPLIC TOPICAL (04:03)
[2023-07-26] MEDS: benzocaine-menthol 78 gm Canister 1 SPRAY TOPICAL (04:03)
[2023-07-26 05:45] VITALS: BP 119/68; PULSE 82; RESP 16
[2023-07-26] MEDS: ibuprofen 800 mg tablet PO ×3 (08:33→20:55)
[2023-07-26] MEDS: prenatal vitamin Capsule 1 CAP PO (08:33)
[2023-07-26] MEDS: docusate sodium 100 mg Capsule PO ×2 (08:33→16:09)
[2023-07-26 08:59] VITALS: BP 118/77; PULSE 77; TEMP 37; O2SAT 97
[2023-07-26] MEDS: HYDROcodone-acetaminophen 5-325 mg Tablet PO (10:16)
[2023-07-26 11:25] LABS: Hematocrit 39.2 % (36-47); Mean Corpuscular HGB Conc 35.7 g/dL (30-55); Mean Corpuscular Hemoglobin 30.8 pg (27-33); Mean Corpuscular Volume 86.3 fl (85-98); Mean Platelet Volume 10.3 fL (7.4-10.4); Platelet Count 114 10^3/cmm (157-399); Red Blood Count 4.54 10^6/uL (3.85-5.65); Red Cell Distribution Width 12.3 % (12.1-15.1); White Blood Count 15.27 10^3/uL (3.29-11.43)
[2023-07-26 12:30] VITALS: RESP 15
[2023-07-26 16:00] VITALS: BP 119/81; PULSE 76; TEMP 36.6; O2SAT 97
[2023-07-26 22:00] VITALS: BP 103/61; PULSE 77; RESP 18; TEMP 36.9; O2SAT 96
[2023-07-27 04:00] VITALS: BP 112/68; PULSE 73; RESP 18; TEMP 37; O2SAT 98
--- NOTE | 2023-07-27 08:00 | ANE.PACU2 ---
Inpatient post-anesthesia follow up: Airway intact: Yes Vital signs: Temperature 99.1 F Pulse Rate 76 Respiratory Rate 17 Blood Pressure 124/72 Pulse Oximetry 97 Oxygen Delivery Me thod Room Air Oxygen Flow Rate Fraction of Inspir ed Oxygen Hydration adequate: Yes Nausea and vomiting: No Pain level: 1 Mental status: Baseline Epidural Start/End: Epidural Start Date: 07/25/23 Epidural Start Time: 21:38 Epidural End Date: 07/25/23 Epidural End Time: 23:38
[2023-07-27] MEDS: prenatal vitamin Capsule 1 CAP PO (09:22)
[2023-07-27 09:23] VITALS: BP 111/71; PULSE 76; TEMP 36.9; O2SAT 97
[2023-07-27] MEDS: docusate sodium 100 mg Capsule PO (09:23)
[2023-07-27] MEDS: ibuprofen 800 mg tablet PO (09:23)
[2023-07-27] MEDS: calcium carbonate 500 mg Chew Tablet 1000 MG PO (10:56)
--- NOTE | 2023-07-27 11:29 | PM.OBGYDC ---
Discharge Providers A AND P MECHANIC Date of Admission: 07/25/23 20:24 Date of Discharge: 07/27/23 Attending Provider at Admission: Ganga Marie MD Attending Provider at Discharge: Ganga Marie MD Primary A AND P MECHANIC: Dr. Barbosa Primary Care Provider: Jonathan King DO Reason for Visit Reason for Visit: contractions Hospital Course Hospital Course Mrs. Echavarria 32-year-old female came to labor and delivery with an estimated gestational age term in active labor. She progressed to have a spontaneous vaginal delivery without complication. and observation has been uneventful. She is afebrile hemodynamically stable day 1. Tolerating diet well. Ambulating without difficulty. She was counseled regarding pelvic rest for 6 weeks (no sex, no tampons, no vaginal douches). Return to the emergency room if any fever, increased bleeding or pain. She is planning to use intrauterine device for contraception when she comes for the 6 weeks visit. Information Peripartum Data: Delivery Method: Vaginal Physical Exam Narrative: GA; alert and oriented x 3 HEENT: normal Breasts: engorged Nipples - skin intact Lungs; clear to auscultation Heart: regular rhythm, no murmurs. Abd: Appropriately tender. BS+. Uterine fundus below umbilicus. No Fundal Tenderness. Perineum: normal lochia. Extremities: no edema, no cyanosis, no tenderness. Urinary Catheter Management: Garcia: Cath Placed During This Visit: yes, but has since been removed by the nurse Reason for Continuing Indwelling Catheter: Required Immobilization for Trauma or Surgery or Anesthesia Urinary Catheter Date of Insertion: 07/25/23 Urinary Catheter Time of Insertion: 22:29 Date Urinary Catheter Removed: 07/25/23 Time Urinary Catheter Discontinued: 23:10 History History History 2 Term 1 0 Miscarriages/Ectopic 0 Living Children 1 Discharge Data Studies Completed and Pending Laboratory Results WBC 15.27 10^3/uL (3.29-11.43) H 07/26/23 11:20 RBC 4.54 10^6/uL (3.85-5.65) 07/26/23 11:20 Hgb 14.00 g/dL (11.27-16.99) 07/26/23 11:20 Hct 39.2 % (36-47) 07/26/23 11:20 MCV 86.3 fl (85-98) 07/26/23 11:20 MCH 30.8 pg (27-33) 07/26/23 11:20 MCHC 35.7 g/dL (30-55) 07/26/23 11:20 RDW 12.3 % (12.1-15.1) 07/26/23 11:20 Plt Count 114 10^3/cmm (157-399) L 07/26/23 11:20 MPV 10.3 fL (7.4-10.4) 07/26/23 11:20 Neut % (Auto) 74.7 % 07/25/23 20:44 Lymph % (Auto) 19.3 % 07/25/23 20:44 [place] % (Auto) 4.9 % 07/25/23 20:44 Eos % (Auto) 0.4 % 07/25/23 20:44 Baso % (Auto) 0.2 % 07/25/23 20:44 Neut # (Auto) 10.48 10^3/uL (1.8-7.7) H 07/25/23 20:44 Lymph # (Auto) 2.7 10^3/uL (0.8-4.8) 07/25/23 20:44 [place] # (Auto) 0.7 10^3/uL (0.2-0.9) 07/25/23 20:44 Eos # (Auto) 0.1 10^3/uL (0.0-0.8) 07/25/23 20:44 Baso # (Auto) 0.0 10^3/uL (0.0-0.1) 07/25/23 20:44 Nucleated RBC % (auto) 0 % 07/25/23 20:44 Nucleated RBCs # 0.0 /100WBC 07/25/23 20:44 Blood Type O Positive 07/25/23 20:44 Rho(D) Type Rh positive 07/25/23 20:44 Antibody Screen Negative 07/25/23 20:44 Vitals Last Vital Signs Temp 98.5 F 07/27/23 09:23 Pulse 76 07/27/23 09:23 Resp 18 07/27/23 04:00 BP 111/71 07/27/23 09:23 Pulse Ox 97 07/27/23 09:23 O2 Del Method Room Air 07/27/23 04:00 Results Labs OB ([facility]): Obstetrics US 06/29/23 Blood Type O Positive 07/25/23 Antibody Screen Negative 07/25/23 Hct 39.2 % (36-47) 07/26/23 Hgb 14.00 g/dL (11.27-16.99) 07/26/23 Rho(D) Type Rh positive 07/25/23 Plt Count 114 10^3/cmm (157-399) L 07/26/23 Hep Bs Antigen Non-reactive (Nonreactive) 01/12/23 Hepatitis C Antibody Non-reactive (Nonreactive) 01/12/23 Rubella IgG Antibody 85.9 IU/mL (0.0-10.0) H 01/12/23 RPR Nonreactive (Nonreactive) 01/12/23 HIV 1&2 Ab & HIV 1 Ag Non-reactive (Non-Reactiv) 01/12/23 C.trachomatis RNA (TMA) Not detected (NOT DETECTED) 04/13/23 N.gonorrhoeae RNA (TMA) Not detected (NOT DETECTED) 04/13/23 Chlamydia/GC Comment See note 04/13/23 Cystic Fibrosis Screen Negative 09/08/21 Gest Glucose Tolerance 110 mg/dL (70-139) 05/11/23 Uric Acid 3.4 mg/dL (2.4-5.7) 03/18/22 HCG, Qual Positive (Negative) H 01/08/23 Urine Opiates Screen Negative ng/mL (Negative) 01/12/23 Ur Barbiturates Screen Negative ng/mL (Negative) 01/12/23 Ur Phencyclidine Scrn Negative ng/mL (Negative) 01/12/23 Ur Amphetamines Screen Negative ng/mL (Negative) 01/12/23 U Benzodiazepines Scrn Negative ng/mL (Negative) 01/12/23 Urine Cocaine Screen Negative ng/mL (Negative) 01/12/23 U Marijuana (THC) Screen Negative ng/mL (Negative) 01/12/23 Micro Urine Specimen 01/12/23 Pap Smear Interpret See note 04/18/21 Discharge Plan Discharge Patient Disposition: Home Condition: Stable Prescriptions: New acetaminophen 325 mg capsule 325 mg PO Q4H PRN (Reason: fever or pain) Qty: 60 0RF ibuprofen 800 mg tablet 800 mg PO TID PRN (Reason: pain) Qty: 60 0RF Continued prenat.vits,ramses,[id number] Tablet 1 tab PO DAILY Discharge Orders: Discharge Order (Routine); Ordered 07/27/23 Ordered By: Ganga Marie Referrals: Ganga Marie MD [Physician] - Discharge Diet: Usual diet Discharge Activity: Limit activity as instructed Patient Instructions: Depression (DC), Bleeding (DC), Preeclampsia and Eclampsia After Delivery (GEN), Hemorrhage (DC), OB Discharge Report, OB Food/Drug Interaction Guide, OB Care at Home, Opioid Safety, OB Home Care, OB Vaginal Deliveries Activity Restrictions/Additional Instructions: 1. Please call [facility] on next working day to make your post-operative appointment in 2 weeks. 2. Please stay home until you come back to the clinic on first post-hospatilization check up. 3. Please follow instructions on your medications CAREFULLY. 4. If you have abdominal incision, do not cover it unless dressing is necessary because of drainage. OK to shower, but avoid bath. Leave steri-strips until they fall off. If they are still on one week after surgery, you may remove them. 5. If you had vaginal surgery or vaginal repair, Dr. Marie may instruct you to take SITZ bath. 6. Yellow, blood tinged odorous vaginal discharge is usually normal after hysterectomy or vaginal surgeries. 7. No SEXUAL INTERCOURSE, tampons, or douches until you are completely released from the post-operative care. 8. Avoid constipation by eating right and maybe using some Metamucil or Milk of Magnesia. 9. All prescription refills are given during the working hours. Please do no wait till it runs out. Call the clinic at [phone] before your medication runs out. The clinic will get in touch with your doctor to prescribe medications if necessary. 10. Please remain within 40 mile radius from our hospital because emergencies do happen now and then during the post-operative period. 11. If you have stairs at home, take one step at a time slowly and minimize the number of trips. It helps to stay in one floor for the next few days. No lifting except what you can lift by one hand until you are released from the post-operative care. 12. Driving is discouraged until you are well healed. It may be 3-4 weeks before you feel strong enough to drive. You should be able to turn and look through the rear window without pain and you should be able to push the brake pedal very hard without pain before you drive. No fast rules, but SAFETY should be your primary concern. DO NOT drive if you are on sedating medications such as narcotics. 13. Call the clinic (during working hours) to make urgent appointment or go to the Emergency room, if any of the following occurs: i. Vaginal bleeding becomes heavy, more than a period. ii. Incision becomes red and sore, or drains pus. iii. Your TEMPERATURE is over 100.4F or you have chill. iv. IV site becomes red and swollen (a little ``knot?? is usually OK) v. Persistent nausea and vomiting vi. Persistent constipation or diarrhea vii. Rash or allergic reaction to medications. Discharge Attestations A AND P MECHANIC Time Spent in Discharge Care*: greater than 30 min Coding Level of Care Code Acute Code for Chg Fwd
[2023-07-27 12:35] VITALS: BP 124/72; PULSE 76; RESP 17; TEMP 37.3; O2SAT 97
[2023-07-27 13:32] VITALS: BP 124/72; PULSE 76; RESP 17; TEMP 37.3; O2SAT 97
== END 2023-07-27 13:32 | disposition home or self-care (01) | DRG 807 ==
LOC: OBGYN 23:25 → OPOB 07-26 07:38 → OBGYN 07-26 07:39
PROVIDERS: Admitting Provider Obstetrics & Gynecology; PCP Electrodiagnostic Medicine; Visit Provider Obstetrics & Gynecology
DX: O99.62 Diseases of the digestive system complicating childbirth (principal); Z37.0 Single live birth; K21.9 Gastro-esophageal reflux disease without esophagitis; O99.52 Diseases of the respiratory system complicating childbirth; J45.909 Unspecified asthma, uncomplicated; O69.81X0 Labor and delivery complicated by cord around neck, without compression, not applicable or unspecified; Z3A.39 39 weeks gestation of pregnancy; O70.0 First degree perineal laceration during delivery
CPT/HCPCS: 36415; 51702; 59025; 59409; 85025; 85027; 86850; 86900; 98960; 99211; J2590; J2795

== ENCOUNTER → 2024-01-02 10:28 | Outpatient (BNVA) | payer BC, MEDICAID, SELFPAY | PROVIDERS: PCP Electrodiagnostic Medicine; Visit Provider Family Medicine | DX: J02.9 Acute pharyngitis, unspecified (principal) | CPT/HCPCS: 87880 ==

== ENCOUNTER → 2024-03-27 11:00 | Outpatient (BNVA) | payer BC, MEDICAID, SELFPAY | PROVIDERS: PCP Electrodiagnostic Medicine; Visit Provider Obstetrics & Gynecology | DX: Z12.4 Encounter for screening for malignant neoplasm of cervix (principal) | CPT/HCPCS: 87624 ==